=== PATIENT | female | born 1935 | race Caucasian/White ===

== ENCOUNTER 2016-07-21 07:40 | Day surgery (SDC) | payer BC ==
[~2016-07-21 07:40] MED LIST: ANASPAZ0.125 MG PO; ATV.5 PO; ATV1 PO; COREG12 PO; COZ50 PO; DIOV160 PO; DOX10 PO; ELIQUIS 5 MG TAB5 MG PO; LEVOTHYROXIN112 MCG PO; NEUR100 PO; NEXIUM40 PO; NORCO1 TA1 PO; PRILO PO; SUCR PO; ZOCOR20 PO
== END 2016-07-21 10:37 | disposition home or self-care (01) ==
LOC: SDC 07:40
PROVIDERS: Orthopaedic Surgery
PROC: 3E0R3BZ Introduction of Anesthetic Agent into Spinal Canal, Percutaneous Approach (ICD-10-PCS; 2016-07-21)
PROC: 3E0R33Z Introduction of Anti-inflammatory into Spinal Canal, Percutaneous Approach (ICD-10-PCS; principal; 2016-07-21 09:15)
DX: M54.16 Radiculopathy, lumbar region (principal); I10 Essential (primary) hypertension; E78.00 Pure hypercholesterolemia, unspecified; I48.91 Unspecified atrial fibrillation; E03.9 Hypothyroidism, unspecified; F41.9 Anxiety disorder, unspecified; M19.90 Unspecified osteoarthritis, unspecified site; Z87.891 Personal history of nicotine dependence; Z88.1 Allergy status to other antibiotic agents; K21.9 Gastro-esophageal reflux disease without esophagitis; Z90.49 Acquired absence of other specified parts of digestive tract; Z90.710 Acquired absence of both cervix and uterus; Z98.890 Other specified postprocedural states
CPT/HCPCS: J1040; J2250; J3010; Q9967

== ENCOUNTER 2016-09-22 04:30 | Day surgery (SDC) | payer BC ==
[2016-09-15 13:56] LABS: HEMATOCRIT 37.7 % (36.0-48.0); HEMOGLOBIN 12.9 g/dL (12.0-16.0)
[2016-09-15 14:09] LABS: BUN (BLOOD UREA NITROGEN) 15 MG/DL (6-23); CALCIUM, SERUM 9.2 MG/DL (8.5-10.4); CHLORIDE, SERUM 109 MMOL/L (96-112); CO2 (CARBON DIOXIDE) 28 MMOL/L (24-34); CREATININE 0.93 MG/DL (0.55-1.02); GFR AFRICAN AMERICAN 66 ML/MIN (>=60); GFR NON AFRICAN AMERICAN 57 ML/MIN (>=60); GLUCOSE, SERUM 112 MG/DL (60-99); POTASSIUM, SERUM 4.2 MMOL/L (3.5-5.3); SODIUM, SERUM 142 MMOL/L (135-148)
--- NOTE | ~2016-09-22 | OP ---
Record Of Operation [facility] [address] [place]. [address] NAME: PHIL HOLT : 33 STATUS : [facility] PAT#: [id number] AGE: 81 ADM/REG DATE : 09/22/16 MR#: [id number] REPORT SERV DATE: 09/24/16 DICTATED BY: QUINN CORONA II DATE: 09/24/16 REPORT STATUS : Draft TRANSCRIBED BY: MODMelba DATE: 09/24/16 DATE OF PROCEDURE: 09/22/2016 PREOPERATIVE DIAGNOSES: 1. Left lower extremity radiculopathy. 2. Degenerative scoliosis. 3. Lumbar stenosis. POSTOPERATIVE DIAGNOSES: 1. Left lower extremity radiculopathy. 2. Degenerative scoliosis. 3. Lumbar stenosis. PROCEDURE: 1. L4-L5 laminectomy. 2. Use of the microscope and stereotactic spinal imaging. SURGEON: Quinn Corona M.D. FLUIDS: 1400 mL LR. ESTIMATED BLOOD LOSS: 15 mL. DRAINS: None. COMPLICATIONS: None. ANTIBIOTIC: Preoperatively. PREOPERATIVE HISTORY: This is a friendly 81-year-old female who is quite independent, who just recently retired at the age of 79. She reports significant buttock and leg pain consistent with radiculopathy. I discussed this with her and her daughter. We discussed the pros and cons of continuing nonoperative care versus surgery. DESCRIPTION OF PROCEDURE: After informed consent was obtained, the patient was brought to the operating room and general anesthesia achieved. She was placed in the prone position. The back was prepped and draped in a sterile fashion. The iliac crest stereotactic pin was placed into the right pelvis followed by completion of the intraoperative CT scan. The stereotactic guidance was then used throughout the case. Next, a minimally invasive incision was performed on the left at L4-L5. The minimally invasive Quadrant retractor was placed and the microscope brought into place. Using the microscope and stereotactic guidance, the laminectomy was initiated with a high-speed marie, the Kerrison rongeurs, and the curettes. The spinolaminar junction was taken down and the bilateral decompression completed through the unilateral approach. Record Of Operation [facility] [address] [place]. [address] NAME: PHIL HOLT : 33 STATUS : [facility] PAT#: [id number] AGE: 81 ADM/REG DATE : 09/22/16 MR#: [id number] REPORT SERV DATE: 09/24/16 DICTATED BY: QUINN CORONA II DATE: 09/24/16 REPORT STATUS : Draft TRANSCRIBED BY: REYNALDO DATE: 09/24/16 Next, the dura was then well identified and decompressed by removing hypertrophic ligamentum flavum. The portions of the facets were now removed bilaterally to better decompress the L5 nerve roots. The L4 nerve roots were examined and no significant compression noted upon these particular nerve roots. At this point, the irrigation was performed and hemostasis was achieved and standard closure performed. The patient was extubated and transferred to PACU in stable condition. DEJA/REYNALDO Quinn Corona II, M.D. / [id number] CC: Alec Millan II, M.D.
== END 2016-09-22 13:15 | disposition home or self-care (01) ==
LOC: SDC 04:30
PROVIDERS: Orthopaedic Surgery
PROC: 01NB0ZZ Release Lumbar Nerve, Open Approach (ICD-10-PCS; principal; 2016-09-22 05:45)
DX: M54.16 Radiculopathy, lumbar region (principal); M41.80 Other forms of scoliosis, site unspecified; M48.06 Spinal stenosis, lumbar region; M79.7 Fibromyalgia; M19.90 Unspecified osteoarthritis, unspecified site; M54.30 Sciatica, unspecified side; I10 Essential (primary) hypertension; I48.91 Unspecified atrial fibrillation; E03.9 Hypothyroidism, unspecified; E78.00 Pure hypercholesterolemia, unspecified; K21.9 Gastro-esophageal reflux disease without esophagitis; Z98.41 Cataract extraction status, right eye; Z98.42 Cataract extraction status, left eye; Z96.1 Presence of intraocular lens; Z87.81 Personal history of (healed) traumatic fracture; Z88.1 Allergy status to other antibiotic agents; Z79.01 Long term (current) use of anticoagulants; Z79.899 Other long term (current) drug therapy; Z87.891 Personal history of nicotine dependence; Z90.49 Acquired absence of other specified parts of digestive tract; Z90.711 Acquired absence of uterus with remaining cervical stump; Z98.890 Other specified postprocedural states
CPT/HCPCS: 80048; 85014; 85018; 88304; 88311; 93005; A9270-GY; J0690; J1030; J2250; J2270; J2405; J2710; J3010